=== PATIENT | female | born 1970 | race Caucasian/White ===

== ENCOUNTER 2018-07-09 14:04 | Emergency (ER) | payer OTHER ==
[~2018-07-09] VITALS: Ht 172.7 cm; Wt 68.0 kg
[2018-07-09] MEDS ORDERED: NORCO 5-325 TA1 EACH PO (16:36)
[2018-07-09 18:20] VITALS: BP 101/46
== END 2018-07-09 18:20 | disposition home or self-care (01) ==
LOC: M.ERS 14:04
DX: S62.617A Displaced fracture of proximal phalanx of left little finger, initial encounter for closed fracture (principal); S00.83XA Contusion of other part of head, initial encounter; W01.198A Fall on same level from slipping, tripping and stumbling with subsequent striking against other object, initial encounter; Y92.89 Other specified places as the place of occurrence of the external cause; Y93.89 Activity, other specified; Y99.8 Other external cause status